=== PATIENT | female | born 1950 | race African-American/Black ===

== ENCOUNTER 2023-08-05 09:17 | Outpatient (CLI) | payer MEDICARE | END 2023-08-05 09:18 | disposition home or self-care (01) | LOC: BICRAD 09:17 | PROVIDERS: ATTEND Nurse Practitioner Family | DX: S12.091 Other nondisplaced fracture of first cervical vertebra (principal); M47.816 Spondylosis without myelopathy or radiculopathy, lumbar region; I65.23 Occlusion and stenosis of bilateral carotid arteries | CPT/HCPCS: 72040 ==

== ENCOUNTER 2023-11-14 07:40 | Emergency (ER) | payer MEDICARE ==
[2023-11-14] MEDS ORDERED: hydrALAZINE 20 MG/ML VIAL ONE ×2 (07:50→09:27)
[2023-11-14 08:24] LABS: #Basophils 0.03 10x3/uL (0.0-0.2); %Basophils 0.5 % (0.0-1.0); %Eosinophils 2.8 % (0.0-10.0); %Lymphocytes 41.7 % (21.0-51.0); %Monocytes 5.1 % (0.0-10.0); %Neutrophils 49.5 % (42.0-75.0); Hematocrit 34.8 % (36.0-47.0); Hemoglobin 10.9 g/dL (12.0-16.0); Mean Corpuscular HGB CONC 31.8 g/dL (32.0-36.0); Mean Corpuscular Hemoglobin 29.3 pg (27.0-31.0); Mean Platelet Volume 12.3 fL (7.4-10.4); Platelet Count 240 10x3/uL (130-400); RBC Distribution Width 14.3 % (11.5-14.5); Red Blood Cell (RBC) Count 3.76 mill/uL (4.20-5.40)
[2023-11-14 08:36] LABS: ALT (SGPT) 37 U/L (8-55); AST (SGOT) 30 U/L (5-34); Albumin 3.3 g/dL (3.4-4.8); Alkaline Phosphatase 130 U/L (40-110); Anion Gap 12 mmol/L (10-20); BUN (Urea Nitrogen) 16 mg/dL (9.8-20.1); Bilirubin, Total 0.5 mg/dL (0.2-1.2); Calc. Creatinine Clearance 0 mL/min (70-130); Calcium 8.6 mg/dL (7.8-10.44); Carbon Dioxide 24 mmol/L (23-31); Chloride 107 mmol/L (98-107); Estimated GFR 72; Globulin 3.9 g/dL (2.4-3.5); Glucose 137 mg/dL (83-110); Potassium 4.5 mmol/L (3.5-5.1); Protein, Total 7.2 g/dL (5.8-8.1); Sodium 138 mmol/L (136-145)
[2023-11-14 08:40] LABS: Troponin I Less than 0.010 ng/mL (< 0.028)
[2023-11-14] MEDS ORDERED: Ondansetron PF 4 MG/2 ML Vial ONE (09:27)
[2023-11-14] MEDS ORDERED: Lorazepam 2 MG/ML VIAL ONE (10:07)
[2023-11-14] MEDS ORDERED: Orphenadrine Citrate 60 MG/2 ML VIAL ONE (12:43)
== END 2023-11-14 13:48 | disposition home or self-care (01) ==
LOC: ERS 07:40
DX: I10 Essential (primary) hypertension (principal); R25.2 Cramp and spasm; R29.700 NIHSS score 0; Z87.891 Personal history of nicotine dependence; Z79.899 Other long term (current) drug therapy
CPT/HCPCS: 70450; 80053; 84484; 85025; 93005; 96372; 96374; 96375; 96376; 99284; J0360; J2060; J2360; J2405; 36415

== ENCOUNTER 2024-12-08 21:34 | Emergency (ER) | payer OTHER ==
[2024-12-09 09:34] LABS: %Lymphocytes 41.2 % (21.0-51.0); %Monocytes 5.1 % (0.0-10.0); %Neutrophils 49.5 % (42.0-75.0); Hematocrit 33.6 % (36.0-47.0); Hemoglobin 11.0 g/dL (12.0-16.0); Mean Corpuscular Hemoglobin 28.6 pg (27.0-31.0); Mean Corpuscular Volume 87.3 fL (78.0-98.0); Platelet Count 266 10x3/uL (130-400); Red Blood Cell (RBC) Count 3.85 mill/uL (4.20-5.40); White Blood Cell (WBC) Count 6.46 10x3/uL (4.8-10.8)
[2024-12-09 09:35] LABS: #Basophils 0.03 10x3/uL (0.0-0.2); #Eosinophils 0.22 10x3/uL (0.0-0.7); #Monocytes 0.33 10x3/uL (0.11-0.59); #Neutrophils 3.20 10x3/uL (1.40-6.50); %Basophils 0.5 % (0.0-1.0); %Eosinophils 3.4 % (0.0-10.0)
[2024-12-09 10:21] LABS: ALT (SGPT) 13 U/L (Less than 34); AST (SGOT) 20 U/L (11-34); Albumin 3.7 g/dL (3.1-4.5); Alkaline Phosphatase 86 U/L (40-110); Anion Gap 10 mmol/L (10-20); BUN (Urea Nitrogen) 12 mg/dL (9.8-20.1); Bilirubin, Total 0.2 mg/dL (0.3-1.2); Calc. Creatinine Clearance 0 mL/min (70-130); Calcium 8.7 mg/dL (7.8-10.44); Carbon Dioxide 27 mmol/L (23-31); Chloride 107 mmol/L (98-107); Globulin 3.6 g/dL (2.4-3.5); Glucose 109 mg/dL (83-110); Potassium 3.7 mmol/L (3.5-5.1); Sodium 140 mmol/L (136-145)
[2024-12-09 12:29] LABS: Bacteria/HPF None Seen HPF (None Seen); Glucose, Urine (Dipstick) Normal (Negative); Leukocyte Negative Leu/uL (Negative); Protein, Urine (Dipstick) Negative (Neg-Trace); RBC/HPF 0-3 HPF (0-3); Specific Gravity, Urine 1.018 (1.002-1.036); WBC/HPF 0-3 HPF (0-3)
== END 2024-12-09 04:45 | disposition home or self-care (01) ==
LOC: ERS 21:34
DX: I10 Essential (primary) hypertension (principal); E11.9 Type 2 diabetes mellitus without complications; Z79.82 Long term (current) use of aspirin; Z79.84 Long term (current) use of oral hypoglycemic drugs; Z79.899 Other long term (current) drug therapy
CPT/HCPCS: 71045; 80053; 81003; 83880; 84484; 85025; 87086; 93005; 99283